=== PATIENT | female | born 1995 | race Two or more races ===

== ENCOUNTER → 2025-05-02 | Outpatient (REF) | payer OTHER ==
[2025-05-04 14:17] LABS: HPV APTIMA Not Detected (Not Detected)
== END ==
LOC: M PLALAB 14:27
PROVIDERS: ATTEND Nurse Practitioner Family
DX: Z12.4 Encounter for screening for malignant neoplasm of cervix (principal); N89.8 Other specified noninflammatory disorders of vagina
CPT/HCPCS: 87070; 87624; G0123